=== PATIENT | female | born 1970 | race Caucasian/White ===

== ENCOUNTER 2019-02-09 16:11 | Emergency (ER) | payer BC ==
[~2019-02-09] VITALS: Ht 149.9 cm; Wt 62.6 kg
[2019-02-09 16:34] VITALS: Ht 149.9 cm; Wt 62.6 kg
[2019-02-09 17:21] LABS: BASOPHIL % 0.3 % (0-2); PLATELET COUNT 288 x10^3mcL (130-400)
[2019-02-09 17:22] LABS: UA SPECIFIC GRAVITY 1.015 (1.005-1.035); microscopic required? YES; urine erythrocyte TRACE (NEGATIVE)
[2019-02-09 17:25] LABS: RED CELL DISTRIBUTION WIDTH 14.8 % (11.5-14.5)
[2019-02-09 17:40] LABS: CALCIUM 9.9 mg/dL (8.5-10.1); CHLORIDE SERUM 102 mmol/L (98-107); CREATININE SERUM 0.8 mg/dL (0.6-1.0); GFR1 > 60 mL/min; GLUCOSE SERUM 103 mg/dL (74-106); POTASSIUM SERUM 3.9 mmol/L (3.5-5.1); SODIUM SERUM 141 mmol/L (136-145)
[2019-02-09 17:44] LABS: ALKALINE PHOSPHATASE 131 U/L (46-116); ALT/SGPT 63 U/L (14-59); AST/SGOT 38 U/L (15-37); BILIRUBIN TOTAL 0.3 mg/dL (0.20-1.00); LIPASE 187 IU/L (73-393)
[2019-02-09 19:20] VITALS: BP 121/75
== END 2019-02-09 19:20 | disposition home or self-care (01) ==
LOC: ED 16:11
PROVIDERS: Emergency Medicine
DX: K29.70 Gastritis, unspecified, without bleeding (principal); F17.210 Nicotine dependence, cigarettes, uncomplicated; Z98.890 Other specified postprocedural states; Z88.1 Allergy status to other antibiotic agents
CPT/HCPCS: J1885; J2270; J2405

== ENCOUNTER 2019-06-16 08:44 | Emergency (ER) | payer BC ==
[~2019-06-16] VITALS: Ht 149.9 cm; Wt 63.5 kg
[2019-06-16 08:48] VITALS: Ht 149.9 cm; Wt 63.5 kg
[2019-06-16 10:27] LABS: microscopic required? YES; urine erythrocyte 3+ (NEGATIVE)
[2019-06-16 10:43] LABS: CALCIUM 9.2 mg/dL (8.5-10.1); CARBON DIOXIDE 26.4 mmol/L (21-32); CHLORIDE SERUM 101 mmol/L (98-107); CREATININE SERUM 0.8 mg/dL (0.6-1.0); GFR1 > 60 mL/min; GLUCOSE SERUM 91 mg/dL (74-106); POTASSIUM SERUM 3.7 mmol/L (3.5-5.1); SODIUM SERUM 138 mmol/L (136-145)
[2019-06-16 10:48] LABS: ALBUMIN 4.1 g/dL (3.4-5.0); ALKALINE PHOSPHATASE 168 U/L (46-116); ALT/SGPT 38 U/L (14-59); AST/SGOT 31 U/L (15-37); BILIRUBIN TOTAL 0.6 mg/dL (0.20-1.00)
[2019-06-16 10:53] LABS: TOTAL PROTEIN, SERUM 8.7 g/dL (6.4-8.2)
[2019-06-16 11:01] LABS: BASOPHIL % 0.8 % (0-2); PLATELET COUNT 322 x10^3mcL (130-400); RED CELL DISTRIBUTION WIDTH 14.6 % (11.5-14.5)
[2019-06-16 15:48] VITALS: BP 109/62
== END 2019-06-16 16:06 | disposition home or self-care (01) ==
LOC: ED 08:44
PROVIDERS: Emergency Medicine
DX: D25.9 Leiomyoma of uterus, unspecified (principal); F17.210 Nicotine dependence, cigarettes, uncomplicated; G43.909 Migraine, unspecified, not intractable, without status migrainosus; Z88.1 Allergy status to other antibiotic agents
CPT/HCPCS: J1885; J2270; J2405; J3010; J3490; Q9967

== ENCOUNTER 2019-09-10 11:42 | Emergency (ER) | payer BC ==
[~2019-09-10] VITALS: Ht 152.4 cm; Wt 60.3 kg
[2019-09-10 12:10] VITALS: Ht 152.4 cm; Wt 60.3 kg
[2019-09-10 14:58] VITALS: BP 110/76
== END 2019-09-10 14:58 | disposition home or self-care (01) ==
LOC: ED 11:42
DX: S09.90XA Unspecified injury of head, initial encounter (principal); G43.909 Migraine, unspecified, not intractable, without status migrainosus; Z88.1 Allergy status to other antibiotic agents; Z98.890 Other specified postprocedural states; Y04.8XXA Assault by other bodily force, initial encounter; Y93.89 Activity, other specified; Y92.89 Other specified places as the place of occurrence of the external cause; Y99.8 Other external cause status